=== PATIENT | male | born 1965 | race Asian ===

== ENCOUNTER 2019-01-24 11:30 | Inpatient (IN) | payer OTHER, MEDICAID ==
[~2019-01-24] VITALS: Ht 162.6 cm; Wt 54.0 kg
[2019-01-24 11:30] VITALS: BP_SYST 129
--- NOTE | 2019-01-24 11:30 | NUR ---
BROUGHT IN BY [facility] FROM [facility]. PLACED IN BED #6 AND TRIAGED AND REPORT GIVEN TO
--- NOTE | 2019-01-24 11:35 | NUR ---
ER Dr. Reynolds at bedside examining patient.
[2019-01-24] MEDS ORDERED: NS 500 ML IV ONE (11:45)
--- NOTE | 2019-01-24 11:45 | NUR ---
Patient is awake, alert, and oriented x4. Patient was brought in by ambulance for medical clearance. Patient denies any issues at this time and is laying in the gurney comfortably.
[2019-01-24] MEDS ORDERED: QUET400T PO (12:04)
[2019-01-24] MEDS ORDERED: DIPH50CA38 PO (12:04)
[2019-01-24] MEDS ORDERED: GLUXR500 PO (12:04)
[2019-01-24] MEDS ORDERED: SIMV10TA2 PO (12:04)
[2019-01-24] MEDS ORDERED: VITD400 PO (12:04)
[2019-01-24] MEDS ORDERED: DIVA-74 PO (12:04)
[2019-01-24] MEDS ORDERED: ZOLP5TAB2 PO (12:04)
[2019-01-24] MEDS ORDERED: METO50TA7 PO (12:04)
[2019-01-24] MEDS ORDERED: BENZ1TAB76 PO (12:04)
[2019-01-24] MEDS ORDERED: OMEP20CA11 PO (12:04)
--- NOTE | 2019-01-24 12:04 | NUR ---
MEMedication reconciliation completed with information provided by JESSE MANRIQUEZ. Any prior medication reconciliation on file was reviewed and corrected.
[2019-01-24 12:37] LABS: BILIRUBIN,URINE NEGATIVE (NEGATIVE); BLOOD, URINE NEGATIVE (NEGATIVE); CLARITY/URINE CLEAR (CLEAR); COLOR,URINE YELLOW (YELLOW); GLUCOSE,URINE NEGATIVE (NEGATIVE); KETONES,URINE NEGATIVE (NEGATIVE); LEUKOCYTE ESTERASE ,URINE NEGATIVE (NEGATIVE); NITRITE, URINE NEGATIVE (NEGATIVE); PH,URINE 7.5 (5.0-8.0); PROTEIN URINE NEGATIVE (NEGATIVE); UROBILINOGEN,URINE 0.2 (0.2-1.0)
[2019-01-24 12:37] LABS: BASOPHILS % (AUTO) 0.4 % (0.0-2.0); EOSINOPHILS # (AUTO) 0.1 K/uL (0.0-0.4); EOSINOPHILS % (AUTO) 0.6 % (0.0-4.0); HEMATOCRIT 42.2 % (36-54); HEMOGLOBIN 14.4 g/dL (14.0-18.0); LYMPHOCYTES # (AUTO) 2.2 K/uL (1.0-5.5); LYMPHOCYTES % (AUTO) 24.2 % (20.5-51.5); MEAN CORPUSCULAR HEMOGLOBIN 31 pg (27-31); MEAN CORPUSCULAR HGB CONC 34 % (32-36); MEAN CORPUSCULAR VOLUME 90 fL (79.0-98.0); MONOCYTES # (AUTO) 0.6 K/uL (0.0-1.0); MONOCYTES % (AUTO) 6.8 % (1.7-9.3); NEUTROPHILS # (AUTO) 6.1 K/uL (1.8-7.7); PLATELET COUNT (AUTO) 264 K/uL (130-430); RED BLOOD CELL COUNT(AUTO) 4.69 MIL/uL (4.2-6.2); RED CELL DISTRIBUTION WIDTH 14.2 % (9.0-15.0)
[2019-01-24 12:44] LABS: CREATININE 0.56 mg/dL (0.55-1.30); POTASSIUM 3.4 mmol/L (3.5-5.1)
[2019-01-24 12:48] LABS: PROTHROMBIN TIME 10.4 SECS (9.5-12.5)
[2019-01-24 12:49] LABS: ALBUMIN 3.9 g/dL (3.4-4.8); TOTAL BILIRUBIN 0.4 mg/dL (0.0-1.0)
--- NOTE | 2019-01-24 14:45 | NUR ---
Patient will be admitted to care of Dr. Newell. Admitted to medsurg unit. Will go to room 103A. Belongings list completed. Summary report printed. Report will be given at bedside.
--- NOTE | 2019-01-24 14:55 | NUR ---
Patient removed IV.
--- NOTE | 2019-01-24 14:56 | NUR ---
Patient states he wants to go home. Dr. Randall paged.
--- NOTE | 2019-01-24 14:59 | NUR ---
Dr. Newell states to send patient without an IV.
--- NOTE | 2019-01-24 15:05 | NUR ---
Transfer to 122A. EMT present. Dr. Newell stated to admit without IV.
--- NOTE | 2019-01-24 15:12 | NUR ---
ADMISSION NOTE Received patient from ER via josse, received report from Michael NUNN. Patient admitted with diagnosis of Failure to thrive, Malnutrition. Patient oriented to hospital routine, call light, toileting and safety-patient verbalized understanding.
--- NOTE | 2019-01-24 15:13 | NUR ---
No IV access: Per ER nurse -Michael, Dr. Newell is aware that patient pulls out IV and MD states to admit patient without IV.
[2019-01-24 15:38] VITALS: BP_SYST 122
[2019-01-24] MEDS ORDERED: FLU VACC QS2019-20 36MOS UP/PF 60 MCG/0.5 ML SYRINGE I.M. PRN (16:00)
--- NOTE | 2019-01-24 16:36 | NUR ---
PE: Patient is alert, oriented x2, forgetful. He refuses to change his cloths to a hospital gown and refuse to get a new IV access. Physical Exam is done.
--- NOTE | 2019-01-24 16:51 | NUR ---
Ambulatory and wonder: Patient is walking with steady gait, and wondering around, but when talking to him his is oriented, and cooperating when telling him to stay in the room. Addendum: 01/24/19 at 1655 by Vidal Oneil RN Security made aware.
--- NOTE | 2019-01-24 18:48 | NUR ---
Closing note: Patient is stable, no sign of distress, tolerating regular diet well.
--- NOTE | 2019-01-24 19:20 | NUR ---
Opening Note Received patient resting in bed, he is awake, and is calm and quiet. Nonlabored breathing on room air. No s/sx of distress. Patient is in his personal clothing and reports he does not want a patient gown. VSS.
[2019-01-24 20:00] VITALS: BP_SYST 124
--- NOTE | 2019-01-24 21:55 | NUR ---
Dr. Newell Received orders from Dr. Newell; continue home medications, fingerstick blood glucose q6hr, cover w/ regular insulin, sliding scale.
--- NOTE | 2019-01-24 22:08 | NUR ---
Endorsed report SBAR report endorsed to EDOUARD Santillan
--- NOTE | 2019-01-24 22:10 | NUR ---
RECIEVED REPORT. A/O/X/2/ RESTING QUIETLY IN BED WITH EYES CLOSED, EASILY AROUSED, SKIN INTACT, NO IV ACCESS, AWAKE, AMBULATED TO RESTROOM. VOIDING CLEAR YELLOW URINE, PACING BACK AND FORTH IN ROOM, WANTS TO GO SMOKE INSTRUCTED PATIENT TOO LATE TO GO OUTSIDE TO SMOKE, REMAINS CALM AND QUIET. NEW HS MEDICATION GIVEN/
[2019-01-24] MEDS ORDERED: BENZTROPINE MESYLATE 1 MG PO SCH (22:15)
[2019-01-24] MEDS ORDERED: INSULIN REGULAR, HUMAN 100 UNITS/ML, 10 ML VIAL (humuLIN R) SUBCUT PRN (22:30)
[2019-01-24] MEDS ORDERED: BENZTROPINE MESYLATE 1 MG TABLET PO SCH (22:45)
[2019-01-24] MEDS ORDERED: ZOLPIDEM TARTRATE 5 MG TABLET PO SCH (22:45)
[2019-01-24] MEDS ORDERED: DIVALPROEX SODIUM 500 MG TABLET( DEPAKOTE) PO SCH (22:45)
[2019-01-24] MEDS ORDERED: QUEtiapine FUMARATE 100 MG TABLET PO SCH (22:45)
[2019-01-25] VITALS: BP_SYST 130
--- NOTE | 2019-01-25 | NUR ---
PACING FLOOR, SITING IN CHAIR, AFTER GETTING OUT OF BED TO USE RESTROOM, RETURNED TO BED WITHOUT ANY CHANGE IN BEHAVIOR, RESTING QUIETLY IN BED WITH EYES CLOSED.
--- NOTE | 2019-01-25 02:52 | NUR ---
CONSULTATION PAGED/CALLED Reason for Consultation: MALNUTRITION Person Who was Notified: SUSY Consulting Physician: ROBYN GARCIA IS DIRECTOR OF PUBLIC HEALTH [facility] Specialty: Ordering Physician: ÁNGEL
--- NOTE | 2019-01-25 04:00 | NUR ---
RN ROUNDS PATIENT CONTINUES TO REST QUIETLY IN BED , WILL AMBULATE TO RESTROOM NEEEDED, DENIES PAIN,, REMAINS ALERT AND QUIET.
[2019-01-25] MEDS: PANTOPRAZOLE SODIUM 40 MG TAB PO SCH (05:50)
--- NOTE | 2019-01-25 06:04 | NUR ---
CLOSING NOTE RESTED QUIETLY DURING THE NITE, PACING AROUND THE ROOM FOR A SHORT PERIOD OF TIME THEN WENT TO BED QUIETLY, VOIDING CLEAR YELLOW URINE, DENIES PAIN , ACCUCHECK RESULTS @ MIDNIGHT = 112 AND @ 0600 116 WITH NO COVERAGE NEEDED., TOLERATES PO FLUIDS AND PO MEDICATIONS WELL, WILL CONTINUE TO MONITOR FOR ANY CHANGES IN CONDITION.
[2019-01-25 06:05] LABS: CALCIUM 8.9 mg/dL (8.4-11.0); CREATININE 0.54 mg/dL (0.55-1.30); POTASSIUM 3.9 mmol/L (3.5-5.1)
[2019-01-25 06:10] LABS: BASOPHILS % (AUTO) 0.8 % (0.0-2.0); EOSINOPHILS # (AUTO) 0.1 K/uL (0.0-0.4); EOSINOPHILS % (AUTO) 1.1 % (0.0-4.0); HEMATOCRIT 43.5 % (36-54); HEMOGLOBIN 15.1 g/dL (14.0-18.0); LYMPHOCYTES # (AUTO) 2.8 K/uL (1.0-5.5); LYMPHOCYTES % (AUTO) 44.7 % (20.5-51.5); MEAN CORPUSCULAR HEMOGLOBIN 31 pg (27-31); MEAN CORPUSCULAR HGB CONC 35 % (32-36); MEAN CORPUSCULAR VOLUME 89 fL (79.0-98.0); MONOCYTES # (AUTO) 0.4 K/uL (0.0-1.0); NEUTROPHILS # (AUTO) 2.9 K/uL (1.8-7.7); NEUTROPHILS % (AUTO) 46.4 % (40.0-70.0); PLATELET COUNT (AUTO) 270 K/uL (130-430); RED BLOOD CELL COUNT(AUTO) 4.91 MIL/uL (4.2-6.2); RED CELL DISTRIBUTION WIDTH 14.2 % (9.0-15.0); WHITE BLOOD COUNT (AUTO) 6.1 K/uL (4.8-10.8)
[2019-01-25 08:00] VITALS: BP_SYST 153
--- NOTE | 2019-01-25 08:00 | NUR ---
initial notes rec patient awake and confused. walks around in his room at intervals. no ivl on this patient. resp easy and unlabored. no sob noted. bed to the lowest position and side rails up and locked. call light within reached and knows when to call for assists.seen by dr guillen at bedside.
[2019-01-25] MEDS: CHOLECALCIFEROL (VITAMIN D-3) 400 UNIT TABLET PO SCH (08:28)
[2019-01-25] MEDS: BENZTROPINE MESYLATE 1 MG TABLET PO SCH ×2 (08:29→23:35)
[2019-01-25] MEDS: METOPROLOL SUCCINATE 50 MG TAB.SR.24H (TOPROL XL) PO SCH (08:30)
[2019-01-25] MEDS ORDERED: DIATR MEGLU/DIATRIZ SOD 30 ML SOLUTION PO ONE (08:51)
[2019-01-25] MEDS ORDERED: OMEPRAZOLE Non-Formulary 20 MG CAPSULE.DR PO SCH (09:00)
--- NOTE | 2019-01-25 10:00 | NUR ---
rounds continue to ambulate in the room at intervals.no sob noted.
--- NOTE | 2019-01-25 10:08 | NUR ---
Nutrition Update Duke Scale 17 noted. Pt admitted for FTT, malnutrition. Diet: [facility] BMI: 20.3 kg/m2 RD to follow per nutrition care standards.
[2019-01-25] MEDS: D5/0.45 NS 1,000 ML IV SCH ×2 (10:45→23:42)
--- NOTE | 2019-01-25 12:30 | NUR ---
rounds npo maintained for ct abd later. accucheck was done. no hypo hyperglycemic reaction noted.
[2019-01-25 12:40] VITALS: BP_SYST 121
--- NOTE | 2019-01-25 14:00 | NUR ---
rounds continue to walk in the room or sit at the bedside. no sob noted.
--- NOTE | 2019-01-25 16:29 | NUR ---
Dietitian Recommendations * Recommend CCHO diet w/ Glucerna BID (provides 440 kcal/day and 20 gm of protein/day) * Recommend snacks BID (chocolate pudding, fruit, and yogurt) KAHLIL, RD Please refer to Nutrition Assessment for details. Signed: 01/25/19 at 1630 by Leslie CARDOZA <Co-Signature Required> Co-Signed: 01/25/19 at [address] Addendum: 01/25/19 at 1631 by Leslie CARDOZA Amended: Links added.
[2019-01-25 16:38] VITALS: BP_SYST 127
--- NOTE | 2019-01-25 18:48 | NUR ---
closing notes pt is in bed and trying to sleep. bed to the lowest position and side rails up and locked. call light within reached and knows when to call for assistance. no sob noted.
[2019-01-25 19:00] VITALS: BP_SYST 108; BP_SYST 134
--- NOTE | 2019-01-25 19:15 | NUR ---
change of shift.pt.presents quiescent affect;calm.resting.pt.presents language barrier extant;pt's primary language;mandarin,cantonese. per pt's report:per nng;rn:pt.to submit to egd::in am;01/26/19.i am to procure the consent via telephone.pt.requires an iv access.pt.capable to ambulate;reposition self.general status stable;respiratory status stable;unlabored @room air.call light/telephone w/in reach of the pt.
[2019-01-25 20:00] VITALS: BP_SYST 104
--- NOTE | 2019-01-25 20:00 | NUR ---
pt.assessed.v/s asssessed.values w/in normal limits.no c/o pain,nausea.general status stable.respiratory status stable@room air:02-sat%=98%. pt.capable to ambulate;repostion self.i have placed the telephone calls to pt's brother's;katty/ricky;neither is available@this hour.i have provided the voice-mail.re;egd and the consent.
[2019-01-25] MEDS ORDERED: QUEtiapine FUMARATE 200 MG TAB.SR.24H PO SCH (21:00)
[2019-01-25] MEDS ORDERED: ZOLPIDEM TARTRATE 5 MG TABLET PO SCH (21:00)
[2019-01-25] MEDS: SIMVASTATIN 10 MG TABLET PO SCH (21:00)
[2019-01-25] MEDS ORDERED: DIVALPROEX SODIUM 500 MG TABLET( DEPAKOTE) PO SCH (21:00)
--- NOTE | 2019-01-25 22:00 | NUR ---
pt.assessed.pt.presents quiescent affect;resting.no c/o pain,nausea.pt.capable to reposition self.general status stable. respiratory status stable;unlabored. call light/telephone w/in reach of the pt.
--- NOTE | 2019-01-25 23:00 | NUR ---
the pt's brother;ghazala has returned the telephone call.i have apprised ricky that the gi [facility] has ordered egd: 01/26/19. ghazala is familiar of the procedure and the entails.ghazala has provided the consent for the procedure;jaqueline.estefanía; viktor has recieved the consent per ghazala:acting as @#2 rn witness;confirmation.bravorn has signed the consent:#2 witness.anival has provided interpretation;luis.pt.understood the procedure,diet status:npo,midnight,blood glucose assessment@midnight,iv fluids necessity. Addendum: 01/26/19 at 0333 by Rambo Galindo RN i have administered the 2100p medications post interpretation provided.
[2019-01-25] MEDS: ZOLPIDEM TARTRATE 5 MG TABLET PO SCH (23:34)
[2019-01-25] MEDS: DIPHENHYDRAMINE HCL 50 MG CAPSULE PO SCH (23:35)
[2019-01-25] MEDS: DIVALPROEX SODIUM 500 MG TABLET( DEPAKOTE) PO SCH (23:35)
[2019-01-25] MEDS: QUEtiapine FUMARATE 200 MG TAB.SR.24H PO SCH (23:36)
--- NOTE | 2019-01-26 | NUR ---
pt.assessed.v/s assessed.values w/in normal limits.no c/o pain,nausea.i have assessed the blood glucose;value; 139mg/dl. pt.diet status;npo.no c/o pain,nausea.pt.capable to repostion self.general status stable;respiratory status stable ;unlabored. call light/telephone w/in reach of the pt.
[2019-01-26 00:03] VITALS: BP_SYST 92
--- NOTE | 2019-01-26 01:00 | NUR ---
pt.required an iv access.estefanía;viktor has established iv acces;#22g location rt.forearm.estefanía;rn has initiated the iv fluids administration.@the rate:75ml/hr.
--- NOTE | 2019-01-26 02:00 | NUR ---
pt assessed.pt.presents quiescent affect;calm,somnolent.iv access intact,patent;iv fluids infusing.pt.capable to reposition self. general status stable.respiratory status stable;unlabored.call light/telephone w/in reach of the pt.
--- NOTE | 2019-01-26 04:00 | NUR ---
pt.assessed.pt.presents quiescent affect;calm,somnolent.iv access intact;patent.iv fluids infusing. general status stable.respiratory status stable;unlabored.pt.capable to reposition self.call light/telephone w/in reach of the pt.
[2019-01-26] MEDS: PANTOPRAZOLE SODIUM 40 MG TAB PO SCH (06:11)
--- NOTE | 2019-01-26 06:34 | NUR ---
pt assessed.pt.presents quiescent affect;calm,somnolent.i have assessed the blood glucose;value;110mg/dl.iv access intact;patenyt;ic fluids infosng.i have attended to the urinal;;measured/cleaned.general status stable;respiratory status stable;unlabored.pt.capable to reposition self.call light/telephone w/in reach of t pt.
--- NOTE | 2019-01-26 07:39 | NUR ---
OPENING NOTES, RECEIVED PT N BED, PT IS MANDARIN SPEAKING, PER REPORT PT IS AAO, NO S./S OF PAIN, NO SOB, VITALS WNL, NO FEVER. PT KEPT NPO FOR EGD. SAFETY PRECAUTION IN PLACE. CALL LIGHT IN REACH. BED N LOW POSITION.
[2019-01-26] MEDS: MEPERIDINE HCL/PF 100 MG/ML AMP ONE ×2 (08:05→08:27)
[2019-01-26] MEDS: MIDAZOLAM HCL 5 MG/5 ML VIAL ONE ×2 (08:06→08:27)
[2019-01-26 08:10] VITALS: BP_SYST 113
[2019-01-26] MEDS: METOPROLOL SUCCINATE 50 MG TAB.SR.24H (TOPROL XL) PO SCH (09:00)
[2019-01-26] MEDS: BENZTROPINE MESYLATE 1 MG TABLET PO SCH ×2 (09:00→21:17)
[2019-01-26] MEDS: CHOLECALCIFEROL (VITAMIN D-3) 400 UNIT TABLET PO SCH (09:00)
--- NOTE | 2019-01-26 09:30 | NUR ---
PT CAME BACK FROM GI LAB. PT SLEEPING, AROUSABLE BUT GOES BACK TO SLEEP. BP WAS 98/68. O2 SAT WAS 95%
[2019-01-26 10:07] LABS: BASOPHILS % (AUTO) 0.8 % (0.0-2.0); EOSINOPHILS # (AUTO) 0.1 K/uL (0.0-0.4); EOSINOPHILS % (AUTO) 1.2 % (0.0-4.0); HEMATOCRIT 42.4 % (36-54); HEMOGLOBIN 14.3 g/dL (14.0-18.0); LYMPHOCYTES # (AUTO) 2.5 K/uL (1.0-5.5); LYMPHOCYTES % (AUTO) 39.9 % (20.5-51.5); MEAN CORPUSCULAR HEMOGLOBIN 30 pg (27-31); MEAN CORPUSCULAR HGB CONC 34 % (32-36); MEAN CORPUSCULAR VOLUME 90 fL (79.0-98.0); MONOCYTES # (AUTO) 0.4 K/uL (0.0-1.0); MONOCYTES % (AUTO) 5.8 % (1.7-9.3); NEUTROPHILS # (AUTO) 3.2 K/uL (1.8-7.7); NEUTROPHILS % (AUTO) 52.3 % (40.0-70.0); PLATELET COUNT (AUTO) 237 K/uL (130-430); RED CELL DISTRIBUTION WIDTH 14.1 % (9.0-15.0); WHITE BLOOD COUNT (AUTO) 6.2 K/uL (4.8-10.8)
[2019-01-26 10:32] LABS: ALBUMIN 3.6 g/dL (3.4-4.8); CALCIUM 8.1 mg/dL (8.4-11.0); CREATININE 0.52 mg/dL (0.55-1.30); POTASSIUM 3.8 mmol/L (3.5-5.1); TOTAL BILIRUBIN 0.4 mg/dL (0.0-1.0)
[2019-01-26] MEDS ORDERED: SIMETHICONE 40 MG/0.6 ML ML PO ONE (11:45)
[2019-01-26 11:50] VITALS: BP_SYST 117
--- NOTE | 2019-01-26 11:54 | NUR ---
PT IN BED, SLEEPING , BREATHING EVEN AND UNLABORED. FS BS = 88, WILL CONT TO MONITOR.
--- NOTE | 2019-01-26 13:43 | NUR ---
PT IS AWAKE, RESTING COMFORTABLY, NO DISTRESS.
[2019-01-26] MEDS ORDERED: MAGNESIUM CITRATE 300 ML ORAL SOLUTION PO ONE (14:00)
--- NOTE | 2019-01-26 14:23 | NUR ---
PT SITTING ON BED, WRITING ON PATENT. SOME TIMES PT MUMBLING AND TALKING TO HIMSELF.
--- NOTE | 2019-01-26 15:36 | NUR ---
PT RESTING IN BED, AWAKE, MUMBLING IN COMORAN.
[2019-01-26 16:54] VITALS: BP_SYST 114
--- NOTE | 2019-01-26 17:47 | NUR ---
PT RESTING IN BED, NO SOB, NO S/S OF PAIN. CLOSES AND OPEN EYES.
[2019-01-26] MEDS: D5/0.45 NS 1,000 ML IV SCH (18:55)
[2019-01-26 19:00] VITALS: BP_SYST 121
[2019-01-26 20:00] VITALS: BP_SYST 121
--- NOTE | 2019-01-26 20:16 | NUR ---
AMBULATED TO THE BATHROOM WITH ASSSIT AND HAD LARGE BM LOOSE BROWNISH COLOS. ASSSITED BACK TO BED,TOLERATED WELL. RESTING COMFORTABLY.
[2019-01-26] MEDS: ZOLPIDEM TARTRATE 5 MG TABLET PO SCH (21:17)
[2019-01-26] MEDS: SIMVASTATIN 10 MG TABLET PO SCH (21:17)
[2019-01-26] MEDS: DIVALPROEX SODIUM 500 MG TABLET( DEPAKOTE) PO SCH (21:17)
[2019-01-26] MEDS: DIPHENHYDRAMINE HCL 50 MG CAPSULE PO SCH (21:17)
[2019-01-26] MEDS: QUEtiapine FUMARATE 200 MG TAB.SR.24H PO SCH (21:27)
--- NOTE | 2019-01-26 21:32 | NUR ---
GLUCOPHAGE HELD THE PATIET BLOOD SUGAR 98 AND PATIENT ATE LESS ALL DAY. WILL INFORM THE PHYSICIAN.
[2019-01-27] VITALS: BP_SYST 102
--- NOTE | 2019-01-27 00:28 | NUR ---
BLOOD SUGAR 76MG/DL,FULL LIQUID SNACK WILL BE PROVIDED Addendum: 01/27/19 at 0043 by Leia Navarro RN 1 PACK OF WARM MILK GIVEN WITH 2 PACKS OF REGULAR SUGAR GIVEN FOR LOW BLOOD SUGAR 76MG/DL
[2019-01-27] MEDS: D5/0.45 NS 1,000 ML IV SCH ×2 (03:36→15:14)
[2019-01-27 04:00] VITALS: BP_SYST 120
--- NOTE | 2019-01-27 06:16 | NUR ---
BLOOD SUGAR 117MG/DL.NO COVERAGE,WITH THE SAME IVF ON.
[2019-01-27] MEDS: PANTOPRAZOLE SODIUM 40 MG TAB PO SCH (06:35)
--- NOTE | 2019-01-27 07:45 | NUR ---
OPENING NOTE RECEIVED PATIENT SITTING UP IN BED. PATIENT IS REMOVING THREADING IN JACKET WITH PEN. DENIES ANY PAIN. ROOM AIR. NO ACUTE DISTRESS. NO SOB. RESPIRATION EVEN AND UNLABORED. SKIN WARM AND DRY TO TOUCH. IV INTACT AND PATENT; MYRA IVF. BED IN LOW AND LOCKED POSITION. SIDERAIL UPX3. BED ALARM ON. ALL NEEDS MET. ROOM NEAR NURSES STATION. CALL LIGHT IN REACH. CONT TO MONITOR.
[2019-01-27] MEDS: CHOLECALCIFEROL (VITAMIN D-3) 400 UNIT TABLET PO SCH (08:56)
[2019-01-27] MEDS: BENZTROPINE MESYLATE 1 MG TABLET PO SCH ×2 (08:57→21:18)
[2019-01-27] MEDS: METOPROLOL SUCCINATE 50 MG TAB.SR.24H (TOPROL XL) PO SCH (08:57)
[2019-01-27] MEDS ORDERED: BISACODYL 5 MG TABLET.DR (DULCOLAX) PO ONE (09:45)
--- NOTE | 2019-01-27 09:45 | NUR ---
SPOKE TO ON PHONE AND PER MD HE WANTS TO SCHEDULE A COLONOSCOPY FOR TOMORROW DUE TO EGD NOT REALLY HAVING ANY FINDINGS. ORDERED CLEAR LIQUID DIET AND NPO AFTER MIDNIGHT, GOLYTELY AND DULCOLAX; ORDERS CLARIFIED AND VERIFIED AND CARRIED OUT. CONT TO MONITOR Addendum: 01/27/19 at 1209 by Yane Kuhn RN PATIENT MADE AWARE AND IS OKAY WITH COLONOSCOPY TOMORROW; CALLED BROTHER MARQUITA EARL BUT NO ANSWER, LEFT VM TO CALL BACK
--- NOTE | 2019-01-27 12:00 | NUR ---
CONSENT SPOKE TO MARQUITA EARL REGARDING COLONOSCOPY AND GIVES CONSENT FOR PROCEDURE. SECOND NURSE WITNESS WAS GIOVANNA NUNN
--- NOTE | 2019-01-27 12:03 | NUR ---
BLOOD GLUCOSE IS 84 mg/dL WITH NO INSULIN COVERAGE NEEDED ORDERED. TEACHING DONE ON DM. CONT TO MONITOR
[2019-01-27 12:59] VITALS: BP_SYST 108
[2019-01-27] MEDS ORDERED: GOLYTELY / COLYTE SOLUTION 4 LITERS PO ONE (16:00)
--- NOTE | 2019-01-27 16:10 | NUR ---
NOTE INSTRUCTED PATIENT ON DRINKING GOLYTELY FOR PROCEDURE; PATIENT NODDED HEAD AND SAID OKAY. TOLERATING WELL
[2019-01-27 17:22] VITALS: BP_SYST 110
--- NOTE | 2019-01-27 17:29 | NUR ---
SPOKE TO AND REPORTED CONSENT RECEIVED AND PATIENT IS DRINKING GOLYTELY. STATED COLONOSCOPY SCHEDULED FOR 0800 TOMORROW AND TO ORDER TAP WATER ENEMA IN AM IF PATIENT NOT CLEAR
--- NOTE | 2019-01-27 17:43 | NUR ---
BLOOD GLUCOSE 75 mg/dL. GAVE PATIENT SOME ORANGE JUICE AND JELLO WHILE WAITING FOR DINNER.
--- NOTE | 2019-01-27 18:48 | NUR ---
CLOSING NOTE PATIENT IS STABLE. NO ACUTE DISTRESS. NO SOB. SKIN WARM AND DRY TO TOUCH. IV INTACT AND MYRA IVF. PATIENT IS AWARE OF NPO AFTER MIDNIGHT AND KNOWS TO FINISH GOLYTELY FOR COLONOSCOPY TOMORROW. BED IN LOW AND LOCKED POSITION. SIDERAIL UPX3. ALL NEEDS MET. CALL LIGHT IN REACH. WILL ENDORSE TO ONCOMING SHIFT.
[2019-01-27 19:00] VITALS: BP_SYST 117
--- NOTE | 2019-01-27 19:15 | NUR ---
change of shift.pt.presents quiescent affect;calm.pt.to submit to colonoscopy in am;01/28/19 per . pt consuming oral-prep;golytely.pt.presents language barrier;mandarin/cantonese.pt's brother's:ricky/katty have provided consent via telephone.pt's brother's are fluent;ukrainian.iv fluids infusing.general status stable.respiratory status stable@room air.unlabored.pt.capable to ambulate w/out assistance.call light/ telephone w/n reach of the pt.
[2019-01-27 20:00] VITALS: BP_SYST 117
--- NOTE | 2019-01-27 20:00 | NUR ---
pt.assessed.v/s assessed:values w/in normal limits.pt.continues to consume oral-prep;golytely.colonoscopy in am; 01/28/19. per .possible tap water enemas in am. per interpretation;shinping;rn:luis/negro:pt.presents no c/o pain,nausea.pt.understands the indication: oral-prep.pt.understands the procedure;colonoscopy.pt.understands the necessity for the iv fluids;d5/45-ns.to continue. pt.capable to ambulate w/out assistance,reposition self.general status stable.respiratory status stable;unlabored. call light/telephone w/in reach of the pt.
--- NOTE | 2019-01-27 20:30 | NUR ---
present,assessing the pt.i have inquired if requires an computer networker;anival.dr guillen stated no,it is not necessary.i have provided up-dates of the pt's progress.consuming the oral-pre,presenting bm's.
--- NOTE | 2019-01-27 21:00 | NUR ---
2100p medications administered.pt.capable to consume medication whole w/out difficulty.
[2019-01-27] MEDS: QUEtiapine FUMARATE 200 MG TAB.SR.24H PO SCH (21:18)
[2019-01-27] MEDS: DIPHENHYDRAMINE HCL 50 MG CAPSULE PO SCH (21:18)
[2019-01-27] MEDS: SIMVASTATIN 10 MG TABLET PO SCH (21:18)
[2019-01-27] MEDS: DIVALPROEX SODIUM 500 MG TABLET( DEPAKOTE) PO SCH (21:18)
[2019-01-27] MEDS: ZOLPIDEM TARTRATE 5 MG TABLET PO SCH (21:25)
--- NOTE | 2019-01-27 22:00 | NUR ---
pt.assessed.pt.presents quiescent affect;calm,iv access intact;patent.iv fluids infusing.general status stable.respiratory status stable;unlabored.pt.capable to reposition self.pt.continues to consume the oral-prep;golytely.call light/telephone w/in reach of the pt.
[2019-01-28] VITALS: BP_SYST 115
--- NOTE | 2019-01-28 | NUR ---
pt.assessed.v/s assessed.values w/in normal limits.per interpretation;shinping;rn pt.presents no c/o pian,nausea.diet status has changed:to npo;colonoscopy in am;01/28/19..pt.has continued to consume the oral prep;golytely.pt.has presented bm's;multiple. i have assessed the blood glucose;value;114mg/dl.i have demonstrated the glucometer to the pt.pt.acknowledged the value.general status stable.respiratory status stable;unlabored,pt.capable to reposition self,ambulate.iv fluids infusing.call light/telephone placed w/in the reach of the pt.
--- NOTE | 2019-01-28 02:00 | NUR ---
pt.assessed.i have assisted the pt.pt has ambulated to the restroom;i have assessed the gait;steady.i have assessed the pt's return liberty bed.i had disconnected the iv fluids line to facilitate pt's ambulation.i have re-connected the iv fluids line:post return to bed.general status stable,respiratory status stable;unlabored.call light/telephone placed w/in reach of the pt.
--- NOTE | 2019-01-28 04:00 | NUR ---
pt.assessed.pt.presents quiescent affect;calm,viewing tv programming.sitting chair.per translation;shinping;rn ,pt.presents no c/o pain,nausea. pt.presents bm's;clear.return.iv access intact;patent:iv fluids;d5/45ns infusing.general status stable.respiratory status stable;unlabored.pt.capable to reposition self.call light/telephone w/in reach of the pt.
--- NOTE | 2019-01-28 06:13 | NUR ---
pt.assessed.pt.awake.pt.oob/chair stable.pt.has completed the consumption of the oral-prep:golytely.pt.presented bm's;clear absent solids.iv acces intact;patent;iv fluds;d5/45ns infusing.no c/o pain,nausea.general status stable. respiratory status stable:unlabored.o2-sat%=98%.pt.shinping;rn has provided the interpretation;pt.to remove clothing. to remove cloth.diet status;remains npo:pt.had inquired when he could eat.pt.capable to reposition self.iv fluids infusing.call light/telephone w/in reach of the pt.
[2019-01-28] MEDS: PANTOPRAZOLE SODIUM 40 MG TAB PO SCH (06:33)
--- NOTE | 2019-01-28 06:38 | NUR ---
i have assessed the blood glucose.[id number].i have demonstrated the glucometer to the pt.
[2019-01-28] MEDS ORDERED: MEPERIDINE HCL/PF 25 MG/ML DISP.SYRIN ONE ×2 (07:37)
[2019-01-28] MEDS ORDERED: SIMETHICONE 40 MG/0.6 ML ML ONE (07:38)
[2019-01-28] MEDS ORDERED: MIDAZOLAM HCL 5 MG/5 ML VIAL ONE (07:38)
[2019-01-28 09:00] VITALS: BP_SYST 127
[2019-01-28] MEDS: METOPROLOL SUCCINATE 50 MG TAB.SR.24H (TOPROL XL) PO SCH (10:00)
[2019-01-28] MEDS: BENZTROPINE MESYLATE 1 MG TABLET PO SCH (10:01)
[2019-01-28] MEDS: CHOLECALCIFEROL (VITAMIN D-3) 400 UNIT TABLET PO SCH (10:01)
[2019-01-28 12:00] VITALS: BP_SYST 122
[2019-01-28 16:00] VITALS: BP_SYST 90
--- NOTE | 2019-01-28 17:04 | NUR ---
Discharge Planning: DCP arranged transportation per charge nurse with [facility] ([phone]) 7:30pm. DCP made charge nurse aware.
[2019-01-28 17:28] VITALS: BP_SYST 90
--- NOTE | 2019-01-28 17:30 | NUR ---
Patient being discharged to [facility], and report called to Edson salvador at the facility receiving the patient. The discharge instructions are given, and the patient to have follow up care with Dr Lashaun Newell his primary md. Patient will resume same meds at home. Bertram Patton RN
== END 2019-01-28 19:30 | DRG 392 ==
LOC: SED 11:30 → SMU 14:42
PROVIDERS: ADMIT Internal Medicine; ATTEND Internal Medicine
PROC: 0DB98ZX Excision of Duodenum, Via Natural or Artificial Opening Endoscopic, Diagnostic (ICD-10-PCS; principal; 2019-01-26 08:00)
PROC: 0DBM8ZZ Excision of Descending Colon, Via Natural or Artificial Opening Endoscopic (ICD-10-PCS; 2019-01-28)
PROC: 0DBL8ZZ Excision of Transverse Colon, Via Natural or Artificial Opening Endoscopic (ICD-10-PCS; 2019-01-28)
PROC: 0DBN8ZZ Excision of Sigmoid Colon, Via Natural or Artificial Opening Endoscopic (ICD-10-PCS; 2019-01-28)
PROC: 0DB68ZX Excision of Stomach, Via Natural or Artificial Opening Endoscopic, Diagnostic (ICD-10-PCS; 2019-01-28 09:00)
DX: K29.70 Gastritis, unspecified, without bleeding (principal); E46 Unspecified protein-calorie malnutrition; R62.7 Adult failure to thrive; K64.8 Other hemorrhoids; E11.9 Type 2 diabetes mellitus without complications; E78.5 Hyperlipidemia, unspecified; F17.210 Nicotine dependence, cigarettes, uncomplicated; I10 Essential (primary) hypertension; K63.5 Polyp of colon; K21.9 Gastro-esophageal reflux disease without esophagitis; G47.00 Insomnia, unspecified; F32.9 Major depressive disorder, single episode, unspecified; Z68.20 Body mass index [BMI] 20.0-20.9, adult; Z79.4 Long term (current) use of insulin
CPT/HCPCS: 36415; 43239; 45380; 45385; 71045; 80048; 80053; 81003; 82962; 83605; 83690-TC; 84484; 85025; 85610-TC; 85730-TC; 87040-TC; 87081; 87086; 88305; 88312; 88313; 93005; 96360; 99285; J1815; J2175; J2250; Q0163; Q9964